=== PATIENT | male | born 1950 | race Caucasian/White ===

== ENCOUNTER 2019-09-05 13:21 | Emergency (ER) | payer MEDICARE ==
[~2019-09-05] VITALS: Ht 177.8 cm; Wt 97.5 kg
[2019-09-05] MEDS ORDERED: SYNTHROID112 MCG PO ×2 (13:52→15:33)
== END 2019-09-05 15:40 | disposition home or self-care (01) ==
LOC: ED 13:21
DX: E03.9 Hypothyroidism, unspecified (principal); Z79.899 Other long term (current) drug therapy
CPT/HCPCS: 84443; 99282